=== PATIENT | male | born 1960 | race Caucasian/White ===

== ENCOUNTER 2019-11-27 04:14 | Emergency (ER) | payer OTHER ==
[~2019-11-27] VITALS: Ht 188 cm; Wt 107.0 kg
[~2019-11-27 04:14] MED LIST: ATOR20TA64 PO; MULT PO; UBID50TA3 PO; WARF5TAB2 PO
--- NOTE | 2019-11-27 04:14 | NUR ---
Placed in room 8 . Placed on cardiac technologist, blood pressure machine and pulse oximeter. To gown for exam. Side rails up.
[2019-11-27 04:15] VITALS: BP_SYST 115
--- NOTE | 2019-11-27 04:15 | NUR ---
Patient was BIB c/o chest pain that radiates to left neck and shortness of breath that woke him up in the middle of the night about an hour ago. Pt states that he feels similar to when he first had his heart attack. Pt has hx of open heart surgery. Patient has an oxygen saturation at 100% but is tachypneic. Pt denies N/V. NO other injuries/complaints per patient or noted.
--- NOTE | 2019-11-27 04:17 | NUR ---
EKG done at bedside.
--- NOTE | 2019-11-27 04:20 | NUR ---
ER Dr. Greco at bedside examining patient.
--- NOTE | 2019-11-27 04:25 | NUR ---
# 18 gauge angiocath placed to RT AC. Use of asceptic technique. Opsite placed over site. Blood return noted. Blood for lab drawn from site. Flushed with 10 cc of normal saline. No evidence of infiltration noted. Patient tolerated well.
[2019-11-27] MEDS ORDERED: NITROGLYCERIN 0.4 MG TAB.SUBL SL ONE ×2 (04:30→04:45)
--- NOTE | 2019-11-27 04:31 | NUR ---
1st dose of Nitroglycerin 0.4mg SL given. pt tolerated well. BP 119/57 HR 86.
--- NOTE | 2019-11-27 04:36 | NUR ---
2nd Dose of Nitroglycerin 0.4 mg SL was given, pt tolerated well. No adverse reaction, will continue to monitor.
--- NOTE | 2019-11-27 04:41 | NUR ---
Patient refused last dose of Nitroglycerin, stating "why do i need more? it doesn't hurt that much anymore. I just can't breathe." Dr. Greco made aware.
[2019-11-27 04:43] LABS: HEMATOCRIT 42.9 % (36-54); HEMOGLOBIN 15.1 g/dL (14.0-18.0); MEAN CORPUSCULAR HEMOGLOBIN 32 pg (27-31); MEAN CORPUSCULAR HGB CONC 35 % (32-36); MEAN CORPUSCULAR VOLUME 90 fL (79.0-98.0); PLATELET COUNT (AUTO) 136 K/uL (130-430); RED BLOOD CELL COUNT(AUTO) 4.78 MIL/uL (4.2-6.2); RED CELL DISTRIBUTION WIDTH 12.2 % (9.0-15.0); WHITE BLOOD COUNT (AUTO) 3.9 K/uL (4.8-10.8)
--- NOTE | 2019-11-27 04:44 | NUR ---
RT at bedside administering breathing treatment. Pt tolerated well.
[2019-11-27] MEDS ORDERED: IPRATROPIUM/ALBUTEROL SULFATE 3 ML AMPUL.NEB (DUONEB) INH ONE ×2 (04:45→06:00)
[2019-11-27 04:54] LABS: CREATININE 1.18 mg/dL (0.55-1.30); POTASSIUM 3.8 mmol/L (3.5-5.1)
[2019-11-27 04:56] LABS: INR 1.6 (0.80-1.20); PROTHROMBIN TIME 16.1 SECS (9.5-12.5)
[2019-11-27 05:01] LABS: ALBUMIN 3.8 g/dL (3.4-4.8); TOTAL BILIRUBIN 1.1 mg/dL (0.0-1.0)
[2019-11-27 05:10] LABS: ATYPICAL LYMPHOCYTES % 0 % (0-0); BAND % (MANUAL) 2 % (0-6); BASOPHILS % (MANUAL) 0 % (0-2); EOSINOPHILS % (MANUAL) 1 % (0-7); LYMPHOCYTES % (MANUAL) 34 % (20-46); MONOCYTES % (MANUAL) 13 % (0-11); PROMYELOCYTES % 1 % (0-0)
[2019-11-27] MEDS ORDERED: WARF4TAB2 PO (05:52)
--- NOTE | 2019-11-27 05:52 | NUR ---
Medication reconciliation completed with information provided by patient at bedside. Any prior medication reconciliation on file was reviewed and corrected.
--- NOTE | 2019-11-27 05:54 | NUR ---
Report given to JUAN DIEGO Amador. All care endorsed.
[2019-11-27] MEDS ORDERED: methylPREDNISolone SOD SUCC/PF 62.5 MG/ML VIAL IM ONE (06:00)
--- NOTE | 2019-11-27 06:11 | NUR ---
Pt medicated per MD orders. Pt tolerated well. Will continue to monitor.
--- NOTE | 2019-11-27 07:23 | NUR ---
Patient given written and verbal discharge instructions and verbalizes understanding.ER MD discussed with patient the results and treatment provided. Patient in stable condition. ID arm band removed. Rx of zithromax, prednisone, albuterol inhaler given. Patient educated on pain management and to follow up with PMD. Pain Scale 0. Opportunity for questions provided and answered. Medication side effect fact sheet provided.
[2019-11-27 07:26] VITALS: BP_SYST 116
== END 2019-11-27 07:23 | disposition home or self-care (01) ==
LOC: SED 04:14
DX: J20.9 Acute bronchitis, unspecified (principal)
CPT/HCPCS: 71045; 80053; 82550; 83880; 84484; 85007; 85027; 85379; 85610; 86710; 93005; 94640; 96372; 99284; J2930; J7620; 36415